=== PATIENT | female | born 1990 | race Caucasian/White ===

== ENCOUNTER 2023-10-29 19:56 | Emergency (ER) | payer MEDICAID ==
[2023-10-29 21:23] LABS: APPEARANCE,URINE CLEAR (CLEAR); BILIRUBIN,URINE NEGATIVE (NEGATIVE); COLOR,URINE YELLOW (YELLOW); GLUCOSE,URINE NEGATIVE (NEGATIVE); KETONES,URINE TRACE mg/dL (NEGATIVE); LEUKOCYTE ESTERASE,URINE NEGATIVE (NEGATIVE); NITRITE,URINE NEGATIVE (NEGATIVE); OCCULT BLOOD,URINE NEGATIVE (NEGATIVE); PROTEIN,URINE NEGATIVE (NEGATIVE); UROBILINOGEN,URINE 0.2 EU/dL (0.2-1.0)
[2023-10-29 21:30] LABS: AMORPHOUS SEDIMENT,URINE NOT SEEN; BACTERIA,URINE FEW; EPITHELIAL CELLS,URINE MODERATE; MUCUS,URINE FEW; RBC,URINE 0-5 (0-5); WBC,URINE 0-5 (0-5)
== END 2023-10-29 22:02 | disposition home or self-care (01) ==
LOC: JP.ED 19:56
DX: O99.891 Other specified diseases and conditions complicating pregnancy (principal); H53.9 Unspecified visual disturbance; Z88.8 Allergy status to other drugs, medicaments and biological substances; Z3A.24 24 weeks gestation of pregnancy
CPT/HCPCS: 81001; 99284